=== PATIENT | male | born 1990 | race Caucasian/White ===

== ENCOUNTER 2018-09-05 01:56 | Emergency (ER) | payer BC ==
[~2018-09-05] VITALS: Ht 167.6 cm; Wt 149.7 kg
--- NOTE | 2018-09-05 02:41 | NUR ---
Patient discharged to home in stable conditon. Written and verbal after care instructions given. Patient verbalizes understanding of instructions. Pt ambulated out of ER in stable gait. No acute distress noted. Vital signs stable
[2018-09-05 02:43] VITALS: BP 136/92
== END 2018-09-05 02:45 | disposition home or self-care (01) ==
LOC: ER 01:58
DX: R51 Headache (principal); R05 Cough; M54.9 Dorsalgia, unspecified; E78.00 Pure hypercholesterolemia, unspecified; J45.909 Unspecified asthma, uncomplicated
CPT/HCPCS: 71045; A4663